=== PATIENT | female | born 1960 | race Caucasian/White ===

== ENCOUNTER 2017-07-06 15:41 | Emergency (ER) | payer OTHER ==
[~2017-07-06] VITALS: Ht 165.1 cm; Wt 95.5 kg
[~2017-07-06 15:41] MED LIST: ALBU1.25 NEB; DIAZ10TA4 PO; LOSA1TAB22 PO; MOME13HF3 INH; MONT10TA6 PO; OMEP-110 PO; PARO40TA61 PO; ZOLP10TA5 PO
[2017-07-06] MEDS ORDERED: DIAZEPAM 5 MG TABLET ONE (16:31)
[2017-07-06] MEDS: DIAZEPAM 5 MG TABLET PO ONE ×2 (16:32→16:49)
[2017-07-06 18:09] VITALS: BP 125/87
== END 2017-07-06 18:11 | disposition home or self-care (01) ==
LOC: ED 17:30
DX: S16.1XXA Strain of muscle, fascia and tendon at neck level, initial encounter (principal); I10 Essential (primary) hypertension; V89.2XXA Person injured in unspecified motor-vehicle accident, traffic, initial encounter; Y93.89 Activity, other specified; Y92.488 Other paved roadways as the place of occurrence of the external cause; Y99.8 Other external cause status
CPT/HCPCS: 72110; 72125; 99284